=== PATIENT | male | born 1945 | race Caucasian/White ===

== ENCOUNTER 2019-04-19 14:46 | Observation (INO) | payer MEDICARE, OTHER, SELFPAY ==
[2019-04-19] VITALS (8 sets, daily range): BP systolic 139–192; BP diastolic 64–86; PULSE 61–74; RESP 14–26; TEMP 36.3–36.8; O2SAT 95–100; BMI 26.9; BMI 26.1
--- NOTE | 2019-04-19 15:08 | CT_ITS ---
STUDY: CT BRAIN WITHOUT CONTRAST REASON FOR EXAM: Male, 73 years old. Confusion. RADIATION DOSAGE (If Supplied By Facility): CTDIvol = ( 44.99 ) mGy, DLP = ( 812.98 ) mGycm TECHNIQUE: Transaxial CT imaging of the brain was performed without administration of intravenous contrast material. Individualized dose optimization techniques were used for this CT. COMPARISON: No relevant priors. FINDINGS: Normal soft tissue structures. Normal calvarium. There is mild cerebral atrophy with widening of the extra-axial spaces and ventricular dilatation. Normal white matter tracts of the cerebral hemispheres. Normal basal ganglia and thalami. Normal brainstem. Normal cerebellum. There is no intracranial hemorrhage. There are no findings of an acute ischemic infarction. Normal visualized paranasal sinuses. CT/Brain/Head without Contrast IMPRESSION: Chronic involutional changes of the brain. Electronically Signed: Ruiz Killian, at 15:57 EDT , Service support ,
--- NOTE | 2019-04-19 15:09 | EKG12_ITS ---
Test Reason : CONFUSION Blood Pressure : / mmHG Vent. Rate : 051 BPM Atrial Rate : 051 BPM P-R Int : 170 ms QRS Dur : 098 ms QT Int : 478 ms P-R-T Axes : 065 043 043 degrees QTc Int : 440 ms Sinus bradycardia Otherwise normal ECG Confirmed by PEÑA CAAL ([id number]), movie editor BRANDON NOVA ([id number]) on 04/26/2019 1:25:13 PM Referred By: Alex Callaway Confirmed By:PEÑA CAAL
--- NOTE | 2019-04-19 15:18 | ED.VISSUMM ---
- ER Visit Summary Date of Service: 04/19/19 Chief Complaint: [Confusion ] History of Present Illness: The patient is a 73 M [presents via EMS with his . Patient apparently was at [employer] and doing some tilling in a flower bed when he began feeling faint and became pale and nauseated. There was no actual syncope although states that he has had history of vasovagal syncope in the past. Patient also subsequently became quite confused and could not remember things that he should know. When EMS asked him he did not know who the president was. Patient did not recall taking their granddaughter to [facility] last night and the fact that she was in [place] today. She denies any chest pain or shortness of breath. He denies any headache or falls. He denies any weakness. He denies any paresthesias. She has not had memory issues in the past. She has history of hypertension. He has not been ill recently.] Physical Examination: [HEENT-PERRLA, EOMI. Cranial nerves II through XII grossly intact. TMs clear. Mucous membranes moist. No adenopathy. Cardiovascular-regular rate and rhythm without murmur or ectopy Lungs-clear to auscultation, chest wall stable without crepitus or subcu emphysema Abdomen-normoactive bowel sounds, soft, nontender, no rebound or rigidity, no peritoneal signs. Neuro mydj-cbulue-kufy and heel mora testing within normal limits, negative Romberg, negative pronator drift, fundi benign. NIH stroke scale was 0. Extremities-intact ?4, normal range of motion, normal pulses, atraumatic] Test Results: [CT scan of the brain without contrast obtained showed chronic involutional changes. Chest x-ray showed nothing acute. EKG showed a sinus bradycardia with a ventricular rate of 51 bpm with no acute ST segment changes. ABC with diffuse normal. Chemistries unremarkable. Troponin was less than 0.015. Alcohol was less than 3.] Emergency Department Course and Treatment: [Patient had IV line established and he was placed on a cardiac cath lab technologist.] Treatment Plan: [Admit for further work-up of confusion and amnesia.] Disposition: [Admit] Impression: [confusion/global amnesia] This note was generated with [employer] dictation software. It may contain incorrect words, spelling, and punctuation that were not noted in review of the chart prior to signing ED Disposition - Plan for ED Patient: Referrals: Venkata Dhillon [Primary Care Provider] -
--- NOTE | 2019-04-19 15:20 | RAD_ITS ---
STUDY: X-RAY CHEST REASON FOR EXAM: Male, 73 years old. Altered mental status. TECHNIQUE: Single AP portable view of the chest. COMPARISON: Comparison is made with prior study dated July 30, 2017. FINDINGS: EKG electrodes are seen. The lungs are clear and expanded. There is no demonstrated pleural abnormality. Normal size heart. Normal mediastinum and patricia. Normal visualized pulmonary arteries. There is atherosclerotic tortuosity of the aortic arch and descending thoracic aorta. Normal visualized thoracic spine. Normal visualized ribs, clavicles, and shoulders. There is no demonstrated abnormality of the visualized soft tissue structures of the upper abdomen. RAD/Chest 1 View (Portable) IMPRESSION: No acute abnormality is present. Electronically Signed: Ruiz Killian, at 15:46 EDT , Service support ,
[2019-04-19 15:34] LABS: Absolute Lymphocyte Count 1.55 X10^3/uL (0.83-4.51); Absolute Neutrophil Count 8.5 X10^3/uL (2.0-7.7); Basophil# 0.05 X10^3/uL; Basophil% 0.5 % (0-1); Eosinophils% 0.9 % (0-5); Hemoglobin 15.3 g/dL (13.0-16.5); Lymphocyte # 1.55 X10^3/ul (4.0); Lymphocyte % 14.2 % (19-41); Mean Corp Hgb Conc 34.8 g/dL (32-36); Mean Corpuscular Hgb 33.2 pg (27.0-32.0); Mean Corpuscular Volume 95.4 fL (80-94); Mean Platelet Vol. 8.9 fl (6.2-12.0); Monocyte# 0.71 X10^3/uL; Monocyte% 6.5 % (0-10); NRBC Flagged by Analyzer 0 % (0-5); Neutrophil # 8.49 X10^3/uL (2.7-7.7); Neutrophil % 77.5 % (47-70); Platelet Count 278 K/mm3 (150-450); RBC Distribution Width CV 12.5 % (11.6-14.6); Red Blood Count 4.61 M/mm3 (4.6-6.2); White Blood Count 10.9 K/mm3 (4.4-11.0)
[2019-04-19] MEDS: 0.9% Normal Saline 1,000 ML 150 ML IV (15:50)
[2019-04-19 16:03] LABS: Anion Gap 8 (5-15); BUN 21 mg/dL (7-18); Calcium,Total 9.1 mg/dL (8.5-10.1); Chloride 109 mmol/L (98-107); EST Glomerular Filtration Rate 49 mL/min (>60); Est Glom Filt Rate - Afr Amer 59 mL/min (>60); Estimated Creatinine Clearance 43.21 ml/min; Glucose 110 mg/dL (74-106); Potassium 3.9 mmol/L (3.5-5.1); Sodium Level 142 mmol/L (136-145)
[2019-04-19 16:31] LABS: Alcohol, Blood (Medical)-Serum < 3.0 mg/dL
[2019-04-19 17:02] LABS: Bacteria 0 SEEN /hpf (None Seen); Mucous, Urine 0 SEEN /hpf (<or=2+); Red Blood Cells-Urine 0 SEEN /hpf (0-5); Squamous Epithelial Cells - UA 0 SEEN /hpf (0-5); White Blood Cells 0 SEEN /hpf (0-5)
[2019-04-19 17:10] LABS: Color, Urine Yellow (Yellow); Glucose, Dipstick Normal (Normal); Ketone-Dipstick Negative (Negative); Leukocyte Esterase-Dipstick Negative /ul (Negative); Nitrite-Dipstick Negative (Negative); Occult Blood-Urine Negative /ul (Negative); Protein-Dipstick Negative (Negative); Urine Bilirubin Dipstick Negative (Negative); Urine Clarity Clear (Clear); Urine Urobilinogen Normal (Normal); Urine pH 6.5 (5.0 - 8.0)
--- NOTE | 2019-04-19 17:25 | HP.PCM_ITS ---
<Jaspal Son - Last Filed: 04/19/19 17:25> Problem List (1) Amnesia Status: Acute (2) HTN (hypertension) Status: Chronic (3) BPH (benign prostatic hyperplasia) Status: Chronic History of Present Illness Date of Admission: 04/19/19 Chief Complaint: amnesia The patient is a 73 year old M with pmhx of HTN and BPH who presents to the ER with c/o amnesia. This began suddenly this AM. He was in his usual state of health until today. He was working in a flower bed at [employer] and developed dizziness. He sat down and felt better, but remained confused. His was present and was asking him questions and he did not know the answer. This persisted all day. He currently cannot remember his medical history, or what he is done over the past 3 days including what happened today. He states he feels well, he denies headache, dizziness, lightheadedness, vision changes, hearing changes, focal deficits, numbness or tingling. He never fully lost consciousness today. He has had episodes of vasovagal syncope in the past but is never had memory issues. He has no history of dementia and no history of strokes. The patient remains ANO x2, he knows his name and where he is but is not sure what year it is and could not remember the president's name in addition to the above listed things. He denies recent illness or infection. He has no fevers or chills, no shortness of breath or cough, no nausea or vomiting or diarrhea, no urinary complaints either. [] Past Medical History Past Medical History (Chronic Problems): Chronic Problems HTN (hypertension) (Chronic) BPH (benign prostatic hyperplasia) (Chronic) Allergies cephalexin monohydrate [From Keflex] Adverse Reaction (Verified 04/19/19 14:51) Nausea Home Medications: Ambulatory Orders Medication Instructions Recorded Finasteride 5 mg PO DAILY 04/19/19 Lisinopril 5 mg PO DAILY 04/19/19 Plexus Megax 1 tab PO DAILY 04/19/19 Surgical History: no surgical history Psychiatric History: No pertinent psych hx Lives: Spouse/ Significant Other Smoking Status: Never smoker Tobacco Use: Non-smoker Alcohol: Occasional Drugs: None Review of Systems Constitutional: Denies: Chills, Fever, Weight Change HEENT: Denies: Head Aches, Sinus Congestion, Sinus Drainage Cardiovascular: Denies: Chest Pain, Palpitations Respiratory: Denies: Cough, Shortness of breath at rest, Sputum production Gastrointestinal: Denies: Abdominal Pain, Nausea, Vomiting Genitourinary: Denies: Dysuria Musculoskeletal: Denies: Joint Pain, Joint Tenderness Skin: Denies: Rash, Wounds Neurological: Reports: Confusion, - - Dizziness, confusion, loss of memory. Denies: Balance problems, Blurred vision, Double vision, Change in Speech, Slurred speech, Focal weakness, Headaches, Incoordination, Numbness, Tingling Psychiatric: Denies: Anxiety, Depression, Homicidal Ideations, Suicidal Ideations Hematologic/ Lymphatic: Denies: Easy Bruising, Easy Bleeding VTE Information - Inpt Only VTE Present on Admission: No VTE Mechan Device Prophylaxis: None VTE Pharm Prophylaxis ordered?: Yes Patient Problems: Active and Suspected Problems Amnesia (Acute) - Physical Exam General: Alert, Oriented x3, Cooperative HEENT: Atraumatic, PERRLA, EOMI, Normocephalic Neck: Supple, No JVD, Negative Carotid Bruits Lungs: Clear to auscultation, Normal air movement Cardiovascular: Regular rate, No murmurs Abdomen: Bowel Sounds Present, Soft, Non Tender Extremities: No edema, Capillary Refill Less than 3 Seconds Skin: No rashes, No breakdown, - - mild tenting Musculoskeletal: No Tenderness to Palpation of Joints or Extremities Neurological: Cranial nerves II-XII grossly intact Psych/Mental Status: Normal Affect, Appropriate, Alert and oriented to time, place, person, mood and affect Vital Signs Temp Pulse Resp BP Pulse Ox 97.4 F L 71 23 H 165/86 H 97 04/19/19 14:47 04/19/19 17:00 04/19/19 17:00 04/19/19 17:00 04/19/19 17:00 Oxygen Delivery Method Room Air Weight: 182 lb 12.211 oz Body Mass Index (BMI) 26.9 Laboratory Tests Past 24 Hrs 04/19/19 04/19/19 04/19/19 15:20 15:20 15:20 WBC 10.9 RBC 4.61 Hgb 15.3 Hct 44.0 MCV 95.4 H MCH 33.2 H MCHC 34.8 RDW Std Deviation 44.0 H RDW Coeff of Conrad 12.5 Plt Count 278 MPV 8.9 Immature Gran % (Auto) 0.400 Neut % (Auto) 77.5 H Lymph % (Auto) 14.2 L [place] % (Auto) 6.5 Eos % (Auto) 0.9 Baso % (Auto) 0.5 Absolute Neuts (auto) 8.5 H Absolute Lymphs (auto) 1.55 Nucleated RBC % 0 Sodium 142 Potassium 3.9 Chloride 109 H Carbon Dioxide 25.0 Anion Gap 8 BUN 21 H Creatinine 1.50 H Estim Creat Clear Calc 43.21 Est GFR (MDRD) Af Amer 59 L Est GFR (MDRD) Non-Af 49 L BUN/Creatinine Ratio 14.0 Glucose 110 H Calcium 9.1 Troponin I < 0.015 Urine Color Urine Clarity Urine pH Ur Specific [place] Urine Protein Urine Glucose (UA) Urine Ketones Urine Occult Blood Urine Nitrite Urine Bilirubin Urine Urobilinogen Ur Leukocyte Esterase Urine RBC Urine WBC Ur Squamous Epith Cells Urine Bacteria Urine Mucus Ethyl Alcohol < 3.0 04/19/19 16:45 WBC RBC Hgb Hct MCV MCH MCHC RDW Std Deviation RDW Coeff of Conrad Plt Count MPV Immature Gran % (Auto) Neut % (Auto) Lymph % (Auto) [place] % (Auto) Eos % (Auto) Baso % (Auto) Absolute Neuts (auto) Absolute Lymphs (auto) Nucleated RBC % Sodium Potassium Chloride Carbon Dioxide Anion Gap BUN Creatinine Estim Creat Clear Calc Est GFR (MDRD) Af Amer Est GFR (MDRD) Non-Af BUN/Creatinine Ratio Glucose Calcium Troponin I Urine Color Pending Urine Clarity Pending Urine pH Pending Ur Specific [place] Pending Urine Protein Pending Urine Glucose (UA) Pending Urine Ketones Pending Urine Occult Blood Pending Urine Nitrite Pending Urine Bilirubin Pending Urine Urobilinogen Pending Ur Leukocyte Esterase Pending Urine RBC Pending Urine WBC Pending Ur Squamous Epith Cells Pending Urine Bacteria Pending Urine Mucus Pending Ethyl Alcohol Assessment/Plan All Active Problems Amnesia (Acute) 1. Transient amnesia / near syncope - patient cannot remember what happened today, is A/Ox2, and cannot remember the events of the last several days. He has no hx of memory issues or stroke. He may be somewhat dehydrated and may have had a near syncopal episode. - He has a hx of vasovagal syncope and his BUN/Cr are somewhat elevated, but they have been in the past. -Continue IV fluids. Check UA. MRI brain in the AM. -CT brain negative, trop neg, CXR normal, EtOH neg, no fever or leukocytosis. -Check orthos. Maintain on tele, and consider echo. 2. HTN - hold rubin with suspected dehydration. prn hydralazine 3. BPH - proscar DVT ppx: heparin This patient was seen by Jaspal Son PA-C under the supervision of Doctor Nilton. <Alex Callaway - Last Filed: 04/19/19 19:30> History of Present Illness Seen and examined The patient is a 73 year old M with no prior history of neurological disease including TIA/stroke, seizure disorder chronic headache came to ER with altered mental status mainly amnesia. As per the patient's and son, he was found confused, forgetfulness, not able to recall her register today. He also found dizzy today. Patient denies fever, URI, burning micturition/dysuria or localized symptoms pertaining to infection. As per the , this is new for him. [] Past Medical History Allergies cephalexin monohydrate [From Keflex] Adverse Reaction (Verified 04/19/19 14:51) Nausea - Physical Exam General: Cooperative, Confused, Disoriented, - - Patient not able to answer president, disoriented to time. HEENT: Atraumatic, PERRLA, EOMI, Normocephalic Oral: Dry Mucosa Neck: Supple, No JVD, Negative Carotid Bruits Lungs: Clear to auscultation, Normal air movement, No rhonchi, No wheeze, No rales Cardiovascular: Regular rate, Regular Rhythm, Normal S1, Normal S2, No murmurs Abdomen: Bowel Sounds Present Extremities: No edema, Capillary Refill Less than 3 Seconds Skin: No rashes, No breakdown, - Musculoskeletal: No Tenderness to Palpation of Joints or Extremities, Arthritic Changes Neurological: Cranial nerves II-XII grossly intact, Deep Tendon Reflexes 2+/4 and Symmetrical, Neuro grossly intact Vital Signs Temp Pulse Resp BP Pulse Ox 97.8 F 69 16 181/79 H 95 04/19/19 18:17 04/19/19 18:17 04/19/19 18:17 04/19/19 18:17 04/19/19 18:17 Oxygen Delivery Method Room Air Weight: 176 lb 12.972 oz Body Mass Index (BMI) 26.1 Intake and Output for Last 24 Hours 04/17/19 04/18/19 04/19/19 23:59 23:59 23:59 Intake Total 392.5 / 392.5 Balance 392.5 / 392.5 Laboratory Tests Past 24 Hrs 04/19/19 04/19/19 04/19/19 15:20 15:20 15:20 WBC 10.9 RBC 4.61 Hgb 15.3 Hct 44.0 MCV 95.4 H MCH 33.2 H MCHC 34.8 RDW Std Deviation 44.0 H RDW Coeff of Conrad 12.5 Plt Count 278 MPV 8.9 Immature Gran % (Auto) 0.400 Neut % (Auto) 77.5 H Lymph % (Auto) 14.2 L [place] % (Auto) 6.5 Eos % (Auto) 0.9 Baso % (Auto) 0.5 Absolute Neuts (auto) 8.5 H Absolute Lymphs (auto) 1.55 Nucleated RBC % 0 Sodium 142 Potassium 3.9 Chloride 109 H Carbon Dioxide 25.0 Anion Gap 8 BUN 21 H Creatinine 1.50 H Estim Creat Clear Calc 43.21 Est GFR (MDRD) Af Amer 59 L Est GFR (MDRD) Non-Af 49 L BUN/Creatinine Ratio 14.0 Glucose 110 H Calcium 9.1 Troponin I < 0.015 Urine Color Urine Clarity Urine pH Ur Specific [place] Urine Protein Urine Glucose (UA) Urine Ketones Urine Occult Blood Urine Nitrite Urine Bilirubin Urine Urobilinogen Ur Leukocyte Esterase Urine RBC Urine WBC Ur Squamous Epith Cells Urine Bacteria Urine Mucus Ethyl Alcohol < 3.0 04/19/19 16:45 WBC RBC Hgb Hct MCV MCH MCHC RDW Std Deviation RDW Coeff of Conrad Plt Count MPV Immature Gran % (Auto) Neut % (Auto) Lymph % (Auto) [place] % (Auto) Eos % (Auto) Baso % (Auto) Absolute Neuts (auto) Absolute Lymphs (auto) Nucleated RBC % Sodium Potassium Chloride Carbon Dioxide Anion Gap BUN Creatinine Estim Creat Clear Calc Est GFR (MDRD) Af Amer Est GFR (MDRD) Non-Af BUN/Creatinine Ratio Glucose Calcium Troponin I Urine Color Yellow Urine Clarity Clear Urine pH 6.5 Ur Specific [place] 1.010 Urine Protein Negative Urine Glucose (UA) Normal Urine Ketones Negative Urine Occult Blood Negative Urine Nitrite Negative Urine Bilirubin Negative Urine Urobilinogen Normal Ur Leukocyte Esterase Negative Urine RBC 0 SEEN Urine WBC 0 SEEN Ur Squamous Epith Cells 0 SEEN Urine Bacteria 0 SEEN Urine Mucus 0 SEEN Ethyl Alcohol Assessment/Plan This patient was seen in conjunction with Jaspal AYALA. I have independently interviewed and examined the patient and reviewed pertinent history, examination findings, laboratory and plan of management. I have reviewed the note and ag ree with the documented findings with the few additional points. In brief, patient is admitted for confusion, amnesia and dizziness suggestive of transient amnesia with near syncope: Patient does not remember having history of stroke/TIA or carotid stenosis. It seems patient may have metabolic encephalopathy. CT brain does not show acute change. Chest x-ray no acute abnormality. UA is negative. Mild increase in BUN/creatinine from his baseline. Currently BUN/creatinine is 21/1.5. Baseline about 1.3 as per July 2017. IV fluid normal saline. Orthostatic blood pressure. MRI brain o rdered. If found any acute finding in the MRI will need neuro consult. I have discussed my assessment with Jaspal AYALA and orders have been reviewed. Clinical Impression(s) from Imaging Studies Brain CT 04/19/19 15:08 IMPRESSION: Chronic involutional changes of the brain. Chest X-Ray 04/19/19 15:20 IMPRESSION: No acute abnormality is present. Code Visit OBSV E&M: 97469 Initial observation care L3
--- NOTE | 2019-04-19 17:41 | MRI_ITS ---
STUDY: MRI BRAIN WITHOUT CONTRAST REASON FOR EXAM: Male, 73 years old. Confusion. Near syncope. TECHNIQUE: Standardized multiplanar fat and water weighted pulse sequences were obtained. COMPARISON: CT brain without contrast earlier same date. FINDINGS: Normal size of the ventricles and extra-axial spaces for the patient's age. Normal white matter tracts of the supratentorial brain. Normal bilateral basal ganglia. Normal thalami. There is no extra-axial fluid accumulation. Normal flow voids within the major intracranial circulation suggesting patency by spin echo criteria. Normal sella turcica, pituitary gland, infundibular stalk, optic chiasm and hypothalamus. Normal tectal plate and pineal gland. Normal midbrain, julio césar and medulla. Normal cerebellum. Normal basal cisterns. Normal bilateral temporal bones. Normal bilateral internal auditory canals. No demonstrated orbital abnormality, within the constraints of a routine brain study. Normal visualized paranasal sinuses. Normal calvarium and skull base. 1.1 cm diameter simple appearing cystic structure along the anterior aspect of the right mastoid tip, no adjacent inflammatory changes. Small amount of fluid in the right mastoid air cells. MRI/Brain without Contrast IMPRESSION: Normal unenhanced MRI of the brain. 1.1 cm diameter simple appearing cystic structure along the anterior aspect of the right mastoid tip, of uncertain clinical significance but likely incidental given the simple benign appearance. Please correlate with physical examination for tenderness etc. Electronically Signed: Bobo Joel, at 21:47 EDT Tel , Service support ,
[2019-04-19] MEDS: hydrALAZINE 20 MG/ML Vial 5 MG IV (20:40)
[2019-04-19] MEDS: 0.9% Normal Saline 1,000 ML 125 ML IV (20:40)
[2019-04-20] VITALS (9 sets, daily range): BP systolic 142–177; BP diastolic 62–81; PULSE 40–80; RESP 14–18; TEMP 36.6–36.8; O2SAT 95–98; BMI 26.1
[2019-04-20] MEDS: 0.9% Normal Saline 1,000 ML 125 ML IV (04:42)
[2019-04-20 05:56] LABS: Anion Gap 8 (5-15); BUN 17 mg/dL (7-18); BUN/Creat Ratio 14.2 RATIO (10-20); Calcium,Total 8.4 mg/dL (8.5-10.1); Chloride 111 mmol/L (98-107); EST Glomerular Filtration Rate 63 mL/min (>60); Est Glom Filt Rate - Afr Amer 76 mL/min (>60); Estimated Creatinine Clearance 54.01 ml/min; Glucose 89 mg/dL (74-106); Potassium 3.6 mmol/L (3.5-5.1); Sodium Level 144 mmol/L (136-145)
--- NOTE | 2019-04-20 07:19 | MRI_ITS ---
STUDY: MRA NECK WITH AND WITHOUT CONTRAST REASON FOR EXAM: Male, 73 years old. Confusion. Near syncopal episode yesterday. Amnesia. No symptoms today. TECHNIQUE: 3-D wzbh-tk-gedzgz (TOF) imaging was performed in an 1.5 T MRI scanner. IV Dotarem 15 was administered for the contrast enhanced images. COMPARISON: None. FINDINGS: RIGHT CAROTID ARTERIES: Normal right common carotid artery (CCA). Normal right internal carotid bulb. Normal origin of the right internal carotid (ICA) artery without a hemodynamically significant stenosis. Normal visualized cervical portion of the right internal carotid artery. Normal origin of the right external carotid artery (ECA). LEFT CAROTID ARTERIES: Normal left common carotid artery (CCA). Normal left internal carotid bulb. Normal origin of the left internal carotid (ICA) artery without a hemodynamically significant stenosis. Normal visualized cervical portion of the left internal carotid artery. Normal origin of the left external carotid artery (ECA). VERTEBRAL ARTERIES: Normal antegrade flow within the bilateral vertebral artery without a hemodynamically significant stenosis. The left vertebral artery slightly dominant. AORTIC ARCH: Widely patent aortic arch and origins of the great vessels. Widely patent subclavian origins of both vertebral arteries. MRI/MRA Neck WITH and W/O Contrast IMPRESSION: 1. Normal MRA of both common carotid arteries, both common carotid bifurcations, both internal and external carotid arteries and both vertebral arteries. 2. Normal aortic arch and origins of the great vessels. Electronically Signed: Bob Will MD at 14:20 EDT , Service support ,
--- NOTE | 2019-04-20 07:19 | MRI_ITS ---
STUDY: MRA OF THE HEAD WITHOUT CONTRAST REASON FOR EXAM: Male, 73 years old. Confusion. Near syncopal episode yesterday. Amnesia. No symptoms today. TECHNIQUE: 3-D pqld-hg-lxlifw (TOF) imaging was performed with MIPs. The study was performed unenhanced. COMPARISON: None. FINDINGS: Normal bilateral petrous carotid arteries. Normal right cavernous carotid artery with a normal supraclinoid bifurcation. Normal left cavernous carotid artery with a normal supraclinoid bifurcation. Normal right A1 segment of the anterior cerebral artery. Normal left A1 segment of the anterior cerebral artery. Normal intact anterior communicating artery (ACOM). Normal bilateral A2 segments of the anterior cerebral arteries. Normal right M1 and M2 segments of the middle cerebral arteries, with a normal M1 bifurcation. Normal left M1 and M2 segments of the middle cerebral arteries, with a normal M1 bifurcation. No visible right posterior communicating artery (PCOM). No visible left posterior communicating artery (PCOM). Normal bilateral vertebral arteries. Normal basilar artery with a normal basilar bifurcation. The visualized bilateral superior cerebellar (SCA) arteries are normal. Normal bilateral P1, P2 and visualized P3 segments of the posterior cerebral arteries. There is no demonstrated aneurysm of the [place] of [place]. There is no major vessel occlusion or hemodynamically significant stenosis. There is no demonstrated abnormality of the visualized brain. MRI/MRA Head ONLY without Contrast IMPRESSION: Normal MRA of the head Electronically Signed: Bob Will MD at 14:15 EDT , Service support ,
[2019-04-20] MEDS: Finasteride 5 MG Tablet PO (09:16)
--- NOTE | 2019-04-20 12:02 | CASEMGMT ---
RN CM Assessment Introduced role of RN CM to patient Tamara Maldonado at bedside, patient currently not at bedside-in procedure. This same travel writer attempted to speak with patient, Erica and son Scottie at bedside last night in ER however provider entered room and this travel writer was unable to complete assessment. Care providers, pharmacy, and demographics verified with rio Maldonado. Presentation: Presented via EMS d/t was at [employer] and did some tilling in a flower bed when he began feeling faint and became pale and nauseated. Subsequently became confused and couldn't remember things he should know. Admit Dx: Amnesia, near syncope Re-Admit: No Barriers/Issues: None. Patient recently retired this past June 2018 and remains very active. PCP: Venkata Dhillon Specialists: Uro- Used to see Dr Castaneda, states cannot recall name of the lady that that patient sees there now. Per google search Possible Rona Dickens, [facility]?? ENT- Dr Talbot [facility] A[facility]B, [place] SR SUPP Rx Benefit:?Yes ?LNOK: Tamara Rust LW/HPOA: States has both and aware not on file, meant to bring in but forgot. HPOA- [place] Rust Living Arrangements:? Lives with in a SS home, 2 steps to enter ADL?s: Independent with ambulation and ADLs Transportation: Both patient and drive DME: None HHC: None SNF: None Goal: Home and does not think will have ay needs. Denies any questions, concerns or issues with DC planning at this time. Aware CM remains available for any emerging needs. DC PLAN: Home with no anticipated needs identified at this time. RAI He
--- NOTE | 2019-04-20 13:53 | DS.PCM_ITS ---
<Jaspal Son - Last Filed: 04/20/19 14:29> Discharge Date and Diagnosis - Problem List Patient Problems: Active and Suspected Problems Amnesia (Acute) Date of Admission: 04/19/19 Date of Discharge: 04/20/19 - Primary Discharge Diagnosis Active and Suspected Problems Amnesia (Acute) 2/2 dehydration Near syncope 2/2 above Hx vasovagal syncope HTN BPH Hx Warthin's tumors - Secondary Discharge Diagnosis Chronic Problems HTN (hypertension) (Chronic) BPH (benign prostatic hyperplasia) (Chronic) Hospital Course and Treatment Imaging Results: IMAGING: CT/Brain/Head without Contrast IMPRESSION: Chronic involutional changes of the brain. RAD/Chest 1 View (Portable) IMPRESSION: No acute abnormality is present. MRI/Brain without Contrast IMPRESSION: Normal unenhanced MRI of the brain. 1.1 cm diameter simple appearing cystic structure along the anterior aspect of the right mastoid tip, of uncertain clinical significance but likely incidental given the simple benign appearance. Please correlate with physical examination for tenderness etc. Operations: None Procedures: None Summary of Care Provided: Hospital Course: The patient is a 73 year old M with pmhx of vasovagal syncope, HTN, BPH, who presented to the ER with memory loss. He had been working on a flower bed in the morning and had not been drinking water. He suddenly felt LH and sat back in the dirt. His thought he was going to pass out however he stayed conscious. He however was confused, and could not appropriately answer questions. He also could not remember what happened that day or the days prior. He had a CT of the brain which was negative. EKG was negative. Labs were suggestive of dehydration. He was A/Ox2, could not remember the year, the president, his medical hx, or the events of the past days. He was admitted to the PCU and given IV fluids. He had no events on tele. He was taken for an MRI of the brain which was negative, although it did have an incidental finding of a 1.1 cm cyst on the right mastoid tip. He underwent an MRA of the head and Neck. His memory had returned the following morning. He was able to recall the events of the past days to me and what happened yesterday, his medical hx, and answer all A/O questions. He was felt to likely have had a near syncopal episode 2/2 dehydration. He was discharged home in stable condition and will need to follow up with his PCP in 1-2 weeks. As per his incidental cyst he has been seen in the past by ENT Dr. Khan for warthin's tumors , he should follow up in 2 weeks. This patient was seen by Jaspal Son PA-C under the supervision of Doctor Jorge. [] Patient Problems: Active and Suspected Problems Amnesia (Acute) - Physical Exam General: Alert, Oriented x3, Cooperative HEENT: Atraumatic, PERRLA, EOMI, Normocephalic Neck: Supple, No JVD, Negative Carotid Bruits Lungs: Clear to auscultation, Normal air movement Cardiovascular: Regular rate, No murmurs Abdomen: Bowel Sounds Present, Soft, Non Tender Extremities: No edema, Capillary Refill Less than 3 Seconds Skin: No rashes, No breakdown Musculoskeletal: No Tenderness to Palpation of Joints or Extremities Neurological: Cranial nerves II-XII grossly intact Psych/Mental Status: Normal Affect, Appropriate, Alert and oriented to time, place, person, mood and affect Vital Signs Temp Pulse Resp BP Pulse Ox 98.3 F 69 14 150/62 H 95 04/20/19 09:12 04/20/19 09:12 04/20/19 09:12 04/20/19 09:12 04/20/19 09:12 Oxygen Delivery Method Room Air Weight: 176 lb 12.972 oz Body Mass Index (BMI) 26.1 Orthostatic Vital Signs Start: 04/19/19 20:04 Freq: q24h Status: Active Protocol: Activity Type Activity Date Activity User E-Sign Co-Sign Detail Recorded Client Recorded Date Recorded By Document 04/20/19 06:39 KK [id number] 04/20/19 06:46 KK 04/20/19 06:39 Orthostatic Vitals Standing -Blood Pressure (90/60-120/80) 161/73 H -Extremity Use Left Arm -Pulse Rate (60-100) 58 L Sitting -Blood Pressure (90/60-120/80) 153/80 H -Extremity Use Left Arm -Pulse Rate (60-100) 55 L Lying -Blood Pressure (90/60-120/80) 142/81 H -Extremity Use Left Arm -Pulse Rate (60-100) 52 L Intake and Output for Last 24 Hours 04/18/19 04/19/19 04/20/19 23:59 23:59 23:59 Intake Total 1154.58 / 1154.58 2352.92 / 2352.92 Balance 1154.58 / 1154.58 2352.92 / 2352.92 Laboratory Tests Past 24 Hrs 04/19/19 04/19/19 04/19/19 15:20 15:20 15:20 WBC 10.9 RBC 4.61 Hgb 15.3 Hct 44.0 MCV 95.4 H MCH 33.2 H MCHC 34.8 RDW Std Deviation 44.0 H RDW Coeff of Conrad 12.5 Plt Count 278 MPV 8.9 Immature Gran % (Auto) 0.400 Neut % (Auto) 77.5 H Lymph % (Auto) 14.2 L [place] % (Auto) 6.5 Eos % (Auto) 0.9 Baso % (Auto) 0.5 Absolute Neuts (auto) 8.5 H Absolute Lymphs (auto) 1.55 Nucleated RBC % 0 Sodium 142 Potassium 3.9 Chloride 109 H Carbon Dioxide 25.0 Anion Gap 8 BUN 21 H Creatinine 1.50 H Estim Creat Clear Calc 43.21 Est GFR (MDRD) Af Amer 59 L Est GFR (MDRD) Non-Af 49 L BUN/Creatinine Ratio 14.0 Glucose 110 H Calcium 9.1 Troponin I < 0.015 Urine Color Urine Clarity Urine pH Ur Specific [place] Urine Protein Urine Glucose (UA) Urine Ketones Urine Occult Blood Urine Nitrite Urine Bilirubin Urine Urobilinogen Ur Leukocyte Esterase Urine RBC Urine WBC Ur Squamous Epith Cells Urine Bacteria Urine Mucus Ethyl Alcohol < 3.0 04/19/19 04/20/19 16:45 04:58 WBC RBC Hgb Hct MCV MCH MCHC RDW Std Deviation RDW Coeff of Conrad Plt Count MPV Immature Gran % (Auto) Neut % (Auto) Lymph % (Auto) [place] % (Auto) Eos % (Auto) Baso % (Auto) Absolute Neuts (auto) Absolute Lymphs (auto) Nucleated RBC % Sodium 144 Potassium 3.6 Chloride 111 H Carbon Dioxide 25.0 Anion Gap 8 BUN 17 Creatinine 1.20 Estim Creat Clear Calc 54.01 Est GFR (MDRD) Af Amer 76 Est GFR (MDRD) Non-Af 63 BUN/Creatinine Ratio 14.2 Glucose 89 Calcium 8.4 L Troponin I Urine Color Yellow Urine Clarity Clear Urine pH 6.5 Ur Specific [place] 1.010 Urine Protein Negative Urine Glucose (UA) Normal Urine Ketones Negative Urine Occult Blood Negative Urine Nitrite Negative Urine Bilirubin Negative Urine Urobilinogen Normal Ur Leukocyte Esterase Negative Urine RBC 0 SEEN Urine WBC 0 SEEN Ur Squamous Epith Cells 0 SEEN Urine Bacteria 0 SEEN Urine Mucus 0 SEEN Ethyl Alcohol Discharge Diet: Low fat/ Low Cholesterol, 2000 mg Sodium Diet Discharge Activity: Return to Normal Activity Home Medications: Medications to take at Discharge Finasteride 5 mg PO DAILY 04/19/19 Lisinopril 5 mg PO DAILY 04/19/19 Plexus Megax 1 tab PO DAILY 04/19/19 Primary Care Physician: Venkata Dhillon [Primary Care Provider] - Please follow up with your Primary Care Physician in: 1-2 weeks Disposition: Home Minutes spent on discharge:: 35 Patient Condition:: Stable Medical Necessity - Tobacco Use Smoking Status: Never smoker Tobacco Use: Non-smoker Meaningful Use Info Meaningful Use Diagnoses (Choose all that apply): None applicable <JorgeNgakay Caceres - Last Filed: 04/20/19 15:08> Discharge Date and Diagnosis - Primary Discharge Diagnosis Active and Suspected Problems Amnesia (Acute) - Secondary Discharge Diagnosis Chronic Problems HTN (hypertension) (Chronic) BPH (benign prostatic hyperplasia) (Chronic) Hospital Course and Treatment Imaging Results: 04/20/19 07:19 MRA Head ONLY without Contrast [MRI] Urgent MRA Neck WITH and W/O Contrast [MRI] Urgent Summary of Care Provided: Patient seen by Jaspal Son PA-C under my supervision The patient is a 73 year old M with a PMH as listed who was admitted via the ED on 04/20/19 with a complaint of transient memory loss. Been working outside and not drinking much water and suddenly felt lightheaded and sat back. He became confused though he did not lose any consciousness. Was therefore brought to the ED. He had a CT of the brain which was negative and EKG showed no acute ST changes. Labs are essentially unremarkable apart from creatinine of 1.5. He was admitted and hydrated with IV fluids. MRI of the brain was negative for any evidence of stroke and only showed an incidental finding of a 1.1 cm cyst in the right mastoid tip. MRA of the head and neck was also normal. Creatinine trended out 1.2 and patient regained his memory. It was felt that his symptoms were likely due to his syncopal event with dehydration. He was evaluated by physical therapy and deemed fit to go home on 04/20/2019. He is follow-up with his primary care doctor and also to follow-up with ENT to the incidental cyst that was diagnosed by MRI. He seen and examined prior to discharge. He had no complaints. Review of systems otherwise. Labs and vitals reviewed. Home medication reviewed and reconciled. o/e: ] Vital Signs Height 5 ft 9 in Weight: 176 lb 12.972 oz Weight in Pounds 176.8 lbs Pulse Ox 95 Temperature 98.3 F Pulse Rate [Standing] 58 Pulse Rate [Sitting] 55 Pulse Rate [Lying] 52 Pulse Rate 69 Respiratory Rate 14 Blood Pressure [Standing] 161/73 Blood Pressure [Sitting] 153/80 Blood Pressure [Lying] 142/81 Blood Pressure 150/62 Blood Pressure Position Semi-Fowlers General: Alert, Oriented x3, Cooperative HEENT: Atraumatic, PERRLA, EOMI, Normocephalic Neck: Supple, No JVD, Negative Carotid Bruits Lungs: Clear to auscultation, Normal air movement Cardiovascular: Regular rate, No murmurs Abdomen: Bowel Sounds Present, Soft, Non Tender Extremities: No edema, Capillary Refill Less than 3 Seconds Skin: No rashes, No breakdown, - - mild tenting Musculoskeletal: No Tenderness to Palpation of Joints or Extremities Neurological: Cranial nerves II-XII grossly intact Psych/Mental Status: Normal Affect, Appropriate, Alert and oriented to time, place, person, mood and affect Patient counselled to stay hydrated when working outside. Rest of plan as above. - Physical Exam Vital Signs Temp Pulse Resp BP Pulse Ox 98.3 F 69 14 150/62 H 95 04/20/19 09:12 04/20/19 09:12 04/20/19 09:12 04/20/19 09:12 04/20/19 09:12 Oxygen Delivery Method Room Air Weight: 176 lb 12.972 oz Body Mass Index (BMI) 26.1 Orthostatic Vital Signs Start: 04/19/19 20:04 Freq: q24h Status: Active Protocol: Activity Type Activity Date Activity User E-Sign Co-Sign Detail Recorded Client Recorded Date Recorded By Document 04/20/19 06:39 DEANNA [id number] 04/20/19 06:46 04/20/19 06:39 Orthostatic Vitals Standing -Blood Pressure (90/60-120/80) 161/73 H -Extremity Use Left Arm -Pulse Rate (60-100) 58 L Sitting -Blood Pressure (90/60-120/80) 153/80 H -Extremity Use Left Arm -Pulse Rate (60-100) 55 L Lying -Blood Pressure (90/60-120/80) 142/81 H -Extremity Use Left Arm -Pulse Rate (60-100) 52 L Intake and Output for Last 24 Hours 04/18/19 04/19/19 04/20/19 23:59 23:59 23:59 Intake Total 1154.58 / 1154.58 2352.92 / 2352.92 Balance 1154.58 / 1154.58 2352.92 / 2352.92 Laboratory Tests Past 24 Hrs 04/19/19 04/19/19 04/19/19 15:20 15:20 15:20 WBC 10.9 RBC 4.61 Hgb 15.3 Hct 44.0 MCV 95.4 H MCH 33.2 H MCHC 34.8 RDW Std Deviation 44.0 H RDW Coeff of Conrad 12.5 Plt Count 278 MPV 8.9 Immature Gran % (Auto) 0.400 Neut % (Auto) 77.5 H Lymph % (Auto) 14.2 L [place] % (Auto) 6.5 Eos % (Auto) 0.9 Baso % (Auto) 0.5 Absolute Neuts (auto) 8.5 H Absolute Lymphs (auto) 1.55 Nucleated RBC % 0 Sodium 142 Potassium 3.9 Chloride 109 H Carbon Dioxide 25.0 Anion Gap 8 BUN 21 H Creatinine 1.50 H Estim Creat Clear Calc 43.21 Est GFR (MDRD) Af Amer 59 L Est GFR (MDRD) Non-Af 49 L BUN/Creatinine Ratio 14.0 Glucose 110 H Calcium 9.1 Troponin I < 0.015 Urine Color Urine Clarity Urine pH Ur Specific [place] Urine Protein Urine Glucose (UA) Urine Ketones Urine Occult Blood Urine Nitrite Urine Bilirubin Urine Urobilinogen Ur Leukocyte Esterase Urine RBC Urine WBC Ur Squamous Epith Cells Urine Bacteria Urine Mucus Ethyl Alcohol < 3.0 04/19/19 04/20/19 16:45 04:58 WBC RBC Hgb Hct MCV MCH MCHC RDW Std Deviation RDW Coeff of Conrad Plt Count MPV Immature Gran % (Auto) Neut % (Auto) Lymph % (Auto) [place] % (Auto) Eos % (Auto) Baso % (Auto) Absolute Neuts (auto) Absolute Lymphs (auto) Nucleated RBC % Sodium 144 Potassium 3.6 Chloride 111 H Carbon Dioxide 25.0 Anion Gap 8 BUN 17 Creatinine 1.20 Estim Creat Clear Calc 54.01 Est GFR (MDRD) Af Amer 76 Est GFR (MDRD) Non-Af 63 BUN/Creatinine Ratio 14.2 Glucose 89 Calcium 8.4 L Troponin I Urine Color Yellow Urine Clarity Clear Urine pH 6.5 Ur Specific [place] 1.010 Urine Protein Negative Urine Glucose (UA) Normal Urine Ketones Negative Urine Occult Blood Negative Urine Nitrite Negative Urine Bilirubin Negative Urine Urobilinogen Normal Ur Leukocyte Esterase Negative Urine RBC 0 SEEN Urine WBC 0 SEEN Ur Squamous Epith Cells 0 SEEN Urine Bacteria 0 SEEN Urine Mucus 0 SEEN Ethyl Alcohol Code Visit OBSV E&M: [id number] Observation care discharge
--- NOTE | 2019-04-20 14:44 | DCINST_ITS ---
- Discharge Diagnoses Current Active Problems: Current Active and Chronic Problems Amnesia (Acute) HTN (hypertension) (Chronic) BPH (benign prostatic hyperplasia) (Chronic) You will use the following diet at home:: Cardiac Your food should be the consistency of: Regular Your liquids should be the consistency of: Regular/Thin Discharge Activity: Return to Normal Activity Allergies/Adverse Reactions: Allergies cephalexin monohydrate [From [employer]] Adverse Reaction (Verified 04/19/19 14:51) Nausea Medications to take at Discharge Finasteride 5 mg PO DAILY 04/19/19 Lisinopril 5 mg PO DAILY 04/19/19 Plexus Megax 1 tab PO DAILY 04/19/19 Primary Care Physician: Venkata Dhillon [Primary Care Provider] - Please follow up with your Primary Care Physician in: 1-2 weeks Test Results: Test results from this visit will be discussed in further detail at your follow- up appointment, if applicable. Proposed Discharge Date: 04/20/19
[2019-04-20] MEDS: hydrALAZINE 20 MG/ML Vial 5 MG IV (14:55)
--- NOTE | 2019-04-20 15:35 | PHA.DC.MR ---
Pharmacy Service has performed discharge medication reconciliation for this patient. Home Medications Finasteride 5 mg PO DAILY 04/19/19 Lisinopril 5 mg PO DAILY 04/19/19 Plexus Megax 1 tab PO DAILY 04/19/19 The patient's discharge medication list was reviewed for discrepancies and discrepancies were resolved.
== END 2019-04-20 14:44 | disposition home or self-care (01) ==
LOC: ED 15:17 → PCU 18:12
PROVIDERS: Physician Assistant; Admitting Provider Internal Medicine; Emergency Provider Emergency Medicine; Family Provider Family Medicine; PCP Family Medicine; Referring Provider Internal Medicine; Visit Provider Student in an Organized Health Care Education/Training Program
DX: E86.0 Dehydration (principal); R41.3 Other amnesia; N40.0 Benign prostatic hyperplasia without lower urinary tract symptoms; I10 Essential (primary) hypertension; R55 Syncope and collapse; Z79.899 Other long term (current) drug therapy; R29.700 NIHSS score 0
CPT/HCPCS: 36415; 70450; 70544; 70549; 70551; 71045; 80048; 80320; 81001; 84484; 85025; 93005; 96361; 96374; 96376; 99218; 99285; A9575; J7030; A4216; G0378; G0480

== ENCOUNTER → 2019-06-16 09:58 | Outpatient (CLI) | payer MEDICARE, OTHER, SELFPAY ==
[2019-04-20 15:00] VITALS: BMI 26.1
== END ==
PROVIDERS: Family Provider Family Medicine; PCP Family Medicine; Referring Provider Nurse Practitioner Adult Health; Visit Provider Nurse Practitioner Adult Health
DX: Z12.5 Encounter for screening for malignant neoplasm of prostate (principal)
CPT/HCPCS: 36415; 84153; G0103

== ENCOUNTER → 2020-06-27 09:46 | Outpatient (CLI) | payer MEDICARE, OTHER, SELFPAY ==
[2019-04-20 15:00] VITALS: BMI 26.1
== END ==
LOC: LAB.FUTURE 09:49 → LAB 09:51
PROVIDERS: PCP Family Medicine; Referring Provider Nurse Practitioner Adult Health; Visit Provider Nurse Practitioner Adult Health
DX: R97.20 Elevated prostate specific antigen [PSA] (principal)
CPT/HCPCS: 36415; 84153

== ENCOUNTER → 2022-09-19 | Outpatient (CLI) | payer MEDICARE, OTHER, SELFPAY ==
--- NOTE | 2022-09-19 10:00 | ASPOS_PTH ---
PATIENT: DONALD MEJIA LOC: [facility] U#:[id number] AGE/SX: 76/M ROOM: RE09/19/[address]: Dr. Gerson Khan MD : 1945 BED: DIS: 09/19/2022 SPEC #: [id number] RECD: 09/19/22 10:30 STATUS: ZAKIA HERRERA #: [id number] MAYA: 09/19/22 10:[address]: Gerson Khan DEPT: CYTOLOGY RECD BY: Sumi Elizondo ENTERED: 09/19/22 10:30 SP TYPE: ASP HERE OTHR DR: Dr. 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 See comment. AM:latosha 09/22/2022 COMMENT The specimen is evaluated at the time of FNA by Dr. Valencia. 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 The patient?s history of Warthin tumor in the same site approximately 10-12 years ago is noted. Clinical correlation is suggested. Case has been reviewed in consultation with Dr. Barrios who concurs with the above diagnosis. IDC:SJ CYTOLOGY STUDY Slides are reviewed. CYTOLOGY GROSS Received is 0.2 ml of reddish fluid labeled with the patient's name, and designated Right parotid mass. Six imprints and three paps are made from the submitted fluid and the rest is added to CytoLyt for cell block preparation. Submitted for cytology study. / AM:latosha 09/19/2022 TC:5 CPT: 60278, 12054, 96844, 26755
== END | disposition home or self-care (01) ==
LOC: LAB 09:06
PROVIDERS: PCP Family Medicine; Referring Provider Otolaryngology Otolaryngology/Facial Plastic Surgery; Visit Provider Otolaryngology Otolaryngology/Facial Plastic Surgery
DX: D11.0 Benign neoplasm of parotid gland (principal)
CPT/HCPCS: 10021; 88161; 88305

== ENCOUNTER 2024-11-16 19:36 | Emergency (ER) | payer MEDICARE, OTHER, SELFPAY ==
[2024-11-16 19:37] VITALS: BP 178/84; PULSE 65; RESP 18; TEMP 36.2; O2SAT 97; BMI 28.1
--- NOTE | 2024-11-16 20:13 | RAD_ITS ---
PROCEDURE: HIP, UNI W/ PELVIS 2-3 VIEWS 11/16/2024 REASON FOR EXAM: PAIN, RECENT REPLACEMENT TECHNIQUE: 3 view of the left hip FINDINGS: Bones: No acute fracture Joints: Total hip replacement in satisfactory alignment. Soft tissues: Soft tissues are unremarkable. Other: RAD/HIP, UNI W/ Pelvis 2-3 Views IMPRESSION: TOTAL HIP REPLACEMENT Reading Location: [id number]
--- NOTE | 2024-11-16 20:49 | EX.ED.DYSGE1 ---
HPI History of Present Illness Chief Complaint: Lower Extremity Injury Narrative Narrative: Chief complaint and HPI: Left hip pain. 79-year-old male with recent left total hip replacement presents for evaluation of left hip pain. Patient states on he had a total left hip replacement by [facility] due to arthritis. He states he has been doing well since surgery and started physical therapy today. He states shortly after physical therapy he went to get up from the couch when he felt pain in his left hip. He states that it felt different and as if it was locking up. He states that he was able to ambulate but that it was painful. Pain has significantly improved since arriving here in the emergency department and is minimal. He denies any fever, chills, numbness, tingling. Review of systems: See HPI Medications: As listed on the chart Allergies: As listed on the chart PFSH: Per chart Vital signs: As listed on the chart. Reviewed. Physical exam: Gen: A&O x3, NAD Head: Normocephalic, atraumatic Eyes: No sclera icterus, conjunctiva clear ENT: Moist mucous membranes Neck: Trachea midline, No JVD CV: RRR, no murmurs, no peripheral edema Resp: Lungs CTA BL, no w/r/c GI: Abd soft, non-distended, non-tender, no r/r/g Musc: Full ROM of the bilateral lower extremities, no deformity, mild swelling in the left hip compared to the right - patient just did had surgery, incision healing well without signs of infection, compartments soft, no knee or calf tenderness, femoral/DP/PT pulses +2 bilaterally, compartments soft, good capillary refill Skin: Warm, dry Neuro: Alert, oriented, grossly intact, sensation intact Psych: Cooperative, appropriate mood and affect [facility] Medical History (Updated 11/16/24 @ 21:[address] Armin Harding, DO) BPH (benign prostatic hyperplasia) HTN (hypertension) Warthin tumor Home Medications ?Medication ?Instructions ?Recorded ?Last Taken ?Type Plexus Megax 1 tab PO DAILY supplement 04/19/19 04/17/19 History finasteride 5 mg tablet 5 mg PO DAILY 04/19/19 04/17/19 History lisinopril 5 mg tablet 5 mg PO DAILY 09/24/19 09/22/19 History acetaminophen 650 mg 650 mg PO Q8H PRN pain 11/16/24 Unknown History tablet,extended release (8 Hour Pain Reliever) aspirin 81 mg tablet,delayed 81 mg PO DAILY 11/16/24 Unknown History release (Adult Aspirin Regimen) celecoxib 100 mg capsule 100 mg PO BID 11/16/24 Unknown History latanoprost 0.005 % eye drops 1 drp ophthalmic (eye) QHS 11/16/24 Unknown History Allergy/AdvReac Type Severity Reaction Status Date / Time cephalexin monohydrate (From AdvReac Nausea Verified 11/16/24 19:45 Keflex) Surgical History (Updated 11/16/24 @ 19:44 by Shonda Fry) S/P TURP History of hip replacement Social History Smoking Status: Never smoker EXAM Physical Exam Const Vital Signs: 11/16/24 19:37 11/16/24 21:00 11/16/24 21:08 Temperature 97.1 F L 98 F Temperature Source Oral Pulse Rate 65 67 70 Respiratory Rate 18 12 16 Blood Pressure 178/84 H 142/78 H 156/86 H Blood Pressure Mean 115 99 109 Pulse Ox 97 99 97 Oxygen Delivery Method Room Air MDM MDM MDM Narrative Medical decision making narrative: 79-year-old male with recent left total hip replacement presents for evaluation of left hip pain. Patient states on he had a total left hip replacement by [facility] due to arthritis. Patient started physical therapy today. Developed pain in the left hip after getting up from the couch. Pain was severe but now minimal. Able to ambulate. See physical exam findings differential diagnosis includes but is not limited to myofascial spasm, hip strain, suspect less likely fracture or dislocation. Patient not needing anything for pain at this time. X-ray of the hip obtained. X-ray of the hip was personally reviewed and interpreted by me, ED physician. Patient has a total hip replacement. No fracture or dislocation. Radiology in agreement. On reevaluation, patient's pain is minimal. He was able to ambulate in emergency department without difficulty. Patient is stable to discharge home. Unclear etiology for patient's pain at this time suspect possible myofascial spasm. Follow-up with orthopedic surgeon. Return precautions explained. Impression: 1. Left hip pain, suspect myofascial spasm 2. Status post recent left total hip replacement Radiography Diagnostic Testing: Clinical Impression(s) from Imaging Studies Hip/Pelvis X-Ray 11/16/24 20:13 IMPRESSION: TOTAL HIP REPLACEMENT Reading Location: [facility] Discharge Plan Triage Chief Complaint: Lower Extremity Injury ED Provider: Armin Harding Dx/Rx/DC Orders Clinical Impression: Acute pain of left hip Instructions: ED Hip Strain Prescriptions: No Action lisinopril 5 MG tablet 5 mg PO DAILY Patient Comments: TAKE ONE TABLET BY MOUTH EVERY DAY finasteride 5 MG tablet 5 mg PO DAILY Patient Comments: TAKE ONE TABLET BY MOUTH EVERY DAY Plexus Megax 1 tab PO DAILY latanoprost 0.005 % drops 1 drp ophthalmic (eye) QHS celecoxib 100 mg capsule 100 mg PO BID aspirin [Adult Aspirin Regimen] 81 mg tablet,delayed release (DR/EC) 81 mg PO DAILY acetaminophen [8 Hour Pain Reliever] 650 mg tablet extended release 650 mg PO Q8H PRN (Reason: pain) Primary Care Provider: Venkata Dhillon Referrals: Venkata Dhillon MD [Primary Care Provider] - 3-5 Days Activity Restrictions/Additional Instructions: Follow-up with your orthopedic physician as well as PCP. Return back to the ED if symptoms change or worsen. Print Language: Yoruba Disposition Disposition: Home, Self Care Discharge Date/Time: 11/16/24 21:20
[2024-11-16 21:00] VITALS: BP 142/78; PULSE 67; RESP 12; O2SAT 99
[2024-11-16 21:08] VITALS: BP 156/86; PULSE 70; RESP 16; TEMP 36.6; O2SAT 97
== END 2024-11-16 21:20 | disposition home or self-care (01) ==
PROVIDERS: Emergency Provider Surgery; PCP Family Medicine; Visit Provider Surgery
DX: M25.552 Pain in left hip (principal); Z96.642 Presence of left artificial hip joint; Z79.82 Long term (current) use of aspirin; Z79.899 Other long term (current) drug therapy
CPT/HCPCS: 73502; 99284

== ENCOUNTER 2024-11-20 11:49 | Emergency (ER) | payer MEDICARE, OTHER, SELFPAY ==
[2024-11-20 11:50] VITALS: BP 170/76; PULSE 55; RESP 17; TEMP 36.1; O2SAT 97; BMI 28.3
--- NOTE | 2024-11-20 12:13 | EKG12_ITS ---
Test Reason : SYNCOPE Blood Pressure : */* mmHG Vent. Rate : 53 BPM Atrial Rate : 53 BPM P-R Int : 186 ms QRS Dur : 100 ms QT Int : 468 ms P-R-T Axes : 60 29 48 degrees QTcB Int : 439 ms Sinus bradycardia Otherwise normal ECG Confirmed by LEDA TORRES, DIDIER ([id number]), editorial writer AMY CABRERA ([id number]) on 11/23/2024 11:54:00 AM Referred By: ANNE MARIE/SIMA Confirmed By: DIDIER TOMPKINS MD
[2024-11-20 12:24] LABS: Absolute Neutrophil Count 4.9 X10^3/uL (2.0-7.7); Basophil# 0.05 X10^3/uL; Basophil% 0.7 % (0-1); Eosinophil# 0.38 X10^3/uL; Eosinophils% 5.2 % (0-5); Hematocrit 38.2 % (40-54); Hemoglobin 13.4 g/dL (13.0-16.5); Lymphocyte % 17.8 % (19-41); Mean Corp Hgb Conc 35.1 g/dL (32-36); Mean Corpuscular Hgb 34.1 pg (27.0-32.0); Mean Corpuscular Volume 97.2 fL (80-94); Mean Platelet Vol. 8.7 fl (6.2-12.0); Monocyte# 0.68 X10^3/uL; Monocyte% 9.3 % (0-10); NRBC Flagged by Analyzer 0 % (0-5); Neutrophil # 4.87 X10^3/uL (2.7-7.7); Neutrophil % 66.7 % (47-70); Platelet Count 381 K/mm3 (150-450); RBC Distribution Width CV 13.1 % (11.6-14.6); RBC Distribution Width SD 47.3 fl (35.1-43.9); Red Blood Count 3.93 M/mm3 (4.6-6.2); White Blood Count 7.3 K/mm3 (4.4-11.0)
[2024-11-20 12:36] LABS: D-Dimer Quantitative (DVT/PE) 1.95 FEU/ug/m (0.27-0.49)
--- NOTE | 2024-11-20 12:44 | CT_ITS ---
PROCEDURE: CTA CHEST W/WO CONTRAST 11/20/2024 REASON FOR EXAM: SYNCOPE, ELEVATED DIMER TECHNIQUE: CTA axial imaging of the chest with intravenous contrast. Multiplanar and multisequence images were obtained. 3D, 3D post processing, 3D reconstructions, Maximum intensity projection (MIPs) Volume rendering and Shaded surface rendering was provided. PATIENT PREPARATION: Per protocol One or more dose reduction techniques were used (e.g., Automated exposure control, adjustment of the mA and/or kV according to patient size, use of iterative reconstruction technique). CONTRAST: Omnipaque 350 VOLUME: 100 mL Not Provided Gauge IV COMPARISON: None FINDINGS: Hardware: None Lymph nodes: Few prominent but nonenlarged by size criteria hilar and mediastinal lymph nodes. Heart: Mild cardiomegaly. No significant coronary artery calcifications. Thoracic Aorta: No thoracic aortic aneurysm or dissection. Pulmonary Vessels: No large central pulmonary emboli are identified. Contrast timing is suboptimal for evaluation of more distal branches. Lungs and Airways: Central airways are patent without endobronchial lesions. Patchy opacities in the lung bases, compatible with atelectasis. Mild biapical scarring. No focal consolidation. No pneumothorax. No pleural effusion. No suspicious pulmonary nodules. Upper Abdomen: Visualized portions of the upper abdominal viscera are unremarkable. Bones: Degenerative changes of the thoracic spine. CT/CTA Chest W/WO Contrast IMPRESSION: No evidence of pulmonary embolism or acute findings in the thorax. Reading Location: [facility]
--- NOTE | 2024-11-20 12:46 | EX.ED.DYSGE1 ---
HPI History of Present Illness Chief Complaint: Syncope Informant: patient and family Narrative Narrative: Patient is an 79-year-old male with history of hypertension, BPH, recent left hip surgery (performed at [facility] on 10/26/2024) presenting for an episode of syncope. Patient admits he has a history of vasovagal syncope. He states he woke up in his exercises and felt fine. He went to [facility] but when he started staying in the [facility] he felt his left hip started to tighten up. He continued to have increasing amounts of pain. He did start to feel sweaty and nauseous. He then passed out. He did not fall or hit his head. Bystanders got a wheelchair and wheeled him out. While seated in the wheelchair he came to but then try to get nauseous again and passed out again. He was quite pale at the time per his . Bystanders laid him flat. Bystanders reported that his legs were shaking he did have an episode of urinary incontinence. No generalized seizure activity was reported. Patient came to and now states he is feeling back to normal and has no complaints. He states his hip pain is also resolved. Postoperatively he has been taking 81 mg aspirin twice a day. He denies any swelling of his legs. He states he is actually doing very well as far as for rehab from his hip. He denies any shortness of breath or difficulty breathing. Denies any history of blood clots. No other complaints or concerns reported at this time. [facility] Medical History BPH (benign prostatic hyperplasia) HTN (hypertension) Warthin tumor Home Medications ?Medication ?Instructions ?Recorded ?Last Taken ?Type Plexus Megax 1 tab PO DAILY supplement 04/19/19 04/17/19 History finasteride 5 mg tablet 5 mg PO DAILY 04/19/19 04/17/19 History lisinopril 5 mg tablet 5 mg PO DAILY 04/19/19 04/17/19 History acetaminophen 650 mg 650 mg PO Q8H PRN pain 11/16/24 Unknown History tablet,extended release (8 Hour Pain Reliever) aspirin 81 mg tablet,delayed 81 mg PO DAILY 11/16/24 Unknown History release (Adult Aspirin Regimen) celecoxib 100 mg capsule 100 mg PO BID 11/16/24 Unknown History latanoprost 0.005 % eye drops 1 drp ophthalmic (eye) QHS 11/16/24 Unknown History Allergy/AdvReac Type Severity Reaction Status Date / Time cephalexin monohydrate (From AdvReac Nausea Verified 11/20/24 11:53 Keflex) Surgical History S/P TURP History of hip replacement Social History household members: spouse housing: house Smoking Status: Never smoker ROS ROS ED Constitutional Constitutional ED: Reports sweats and other Details: syncope ; Denies chills or fever(s) Eyes Eyes: Denies change in vision Cardiovascular Cardiovascular: Denies chest pain or palpitations Respiratory/Chest Respiratory/Chest: Denies cough Gastrointestinal Gastrointestinal: Reports nausea and vomiting; Denies abdominal pain Musculoskeletal Musculoskeletal: Reports other Details: post op left hip pain ; Denies arthralgias or myalgias Integumentary Denies rash Neurologic Neurologic: Denies headache(s), paresthesias or weakness Hematologic/Lymphatic Hematologic/Lymphatic: Denies easy bleeding or easy bruising EXAM Physical Exam Const Vital Signs: 11/20/24 11:50 11/20/24 11:54 11/20/24 13:50 Temperature 97 F L Temperature Source Temporal Pulse Rate 55 L 84 Pulse Rate [Lying] Pulse Rate [Sitting (for 1 minute prior to obtaining)] Pulse Rate [Standing (for 1 minute prior to obtaining)] Respiratory Rate 17 18 Respiratory Effort Normal Non-Labored Respiratory Pattern Normal Blood Pressure 170/76 H 133/63 H Blood Pressure [Lying] Blood Pressure [Sitting (for 1 minute prior to obtaining)] Blood Pressure [Standing (for 1 minute prior to obtaining)] Blood Pressure Mean 107 86 Blood Pressure Mean [Lying] Blood Pressure Mean [Sitting (for 1 minute prior to obtaining)] Blood Pressure Mean [Standing (for 1 minute prior to obtaining)] Pulse Ox 97 98 Oxygen Delivery Method Room Air 11/20/24 15:00 11/20/24 15:51 11/20/24 15:52 Temperature 98 F Temperature Source Pulse Rate 75 68 Pulse Rate [Lying] 68 Pulse Rate [Sitting (for 1 minute prior to obtaining)] 70 Pulse Rate [Standing (for 1 minute prior to obtaining)] 70 Respiratory Rate 18 18 Respiratory Effort Respiratory Pattern Blood Pressure 135/78 H 150/69 H Blood Pressure [Lying] 150/70 H Blood Pressure [Sitting (for 1 minute prior to obtaining)] 139/72 H Blood Pressure [Standing (for 1 minute prior to obtaining)] 150/69 H Blood Pressure Mean 97 96 Blood Pressure Mean [Lying] 96 Blood Pressure Mean [Sitting (for 1 minute prior to obtaining)] 94 Blood Pressure Mean [Standing (for 1 minute prior to obtaining)] 96 Pulse Ox 98 99 Oxygen Delivery Method Positive well nourished and well developed General Appearance ED: well developed and NAD HEENT Reports moist mucous membranes Eyes PERRL Neck supple and no JVD Chest Wall inspection of chest normal and palpation of chest normal Resp normal respiratory effort and clear to auscultation bilaterally Cardio regular rate, regular rhythm and no murmurs Cardio Narrative: 2+ radial DP pulses present GI normal to inspection, nondistended, normoactive bowel sounds and non-tender Extremity normal to inspection General Extremety ED: Negative for edema or tenderness General Extremity: Negative for edema Neuro oriented x3 and no sensory deficits noted Sensorium / Orientation: alert Motor Exam: strength 5/5 throughout; Negative for general weakness Psych mental status grossly normal Skin no rashes or lesions noted MDM MDM MDM Narrative Medical decision making narrative: Patient evaluated for syncopal episode x 2 while at [facility] today. Reports a history of vasovagal syncope. Upon arrival to the ER patient is mildly hypertensive but bradycardic. He is currently asymptomatic denies any complaints. Differential includes vasovagal syncope, cardiac arrhythmia, ACS, PE, dehydration, symptomatic anemia, ROLANDO and electrolyte abnormality. Workup including CBC, BMP, delta high-sensitivity troponin, D-dimer, EKG ordered. Patient does have an elevated D-dimer but the remainder of his workup is normal. Delta high since a troponin normal at 18 and 18. Low suspicion for ACS. EKG does not show any acute ischemic changes. No arrhythmia noted on telemetry. CTA of the chest added on to rule out PE given elevated D-dimer. This is negative for any acute process. Orthostatic vital signs obtained which are largely negative. Patient is asymptomatic. Do not think he requires IV fluids. He has been eating and drinking at home. Will be discharged home with follow-up instructions with his primary care doctor. Encouraged him to be started to feel lightheaded he should lie flat instead of just sitting to help prevent further episodes of syncope. Given return precautions. Patient and family verbalized agreement understand this plan. Patient discharged home in stable condition. Lab Data Attestation: I reviewed the patient's lab results. Labs: Laboratory Results - last 24 hr 11/20/24 11/20/24 11/20/24 11:50 11:58 14:45 WBC 7.3 RBC 3.93 L Hgb 13.4 Hct 38.2 L MCV 97.2 H MCH 34.1 H MCHC 35.1 RDW Std Deviation 47.3 H RDW Coeff of Conrad 13.1 Plt Count 381 MPV 8.7 Immature Gran % (Auto) 0.300 Neut % (Auto) 66.7 Lymph % (Auto) 17.8 L Benton % (Auto) 9.3 Eos % (Auto) 5.2 H Baso % (Auto) 0.7 Absolute Neuts (auto) 4.9 Absolute Lymphs (auto) 1.30 Nucleated RBC % 0 D-Dimer Quant (PE/DVT) 1.95 H* Sodium 135 Potassium 4.2 Chloride 101 Carbon Dioxide 23.6 Anion Gap 10 BUN 18 Creatinine 1.08 Estim Creat Clear Calc 57.75 Est GFR (MDRD) Non-Af 69 BUN/Creatinine Ratio 16.4 Glucose 121 H Calcium 9.5 Troponin T High Sens 18 Troponin T Hi Sens 2 Hr 18 Radiography Diagnostic Testing: Clinical Impression(s) from Imaging Studies Chest CTA 11/20/24 12:44 IMPRESSION: No evidence of pulmonary embolism or acute findings in the thorax. Reading [facility] Rhythm Strip Rhythm Strip: Sinus Rhythm Rate: 53 Ectopy: None EKG Initial EKG: Attestation: I personally reviewed and interpreted this EKG as follows: Interpretation: Sinus Bradycardia Comments: Sinus bradycardia rate of 53 bpm Normal axis Normal intervals Normal ST segments Discharge Plan Triage Chief Complaint: Syncope ED Provider: Izabel Blackman Dx/Rx/DC Orders Clinical Impression: Syncope and collapse Instructions: ED Fainting, Vagal Reaction Prescriptions: No Action lisinopril 5 MG tablet 5 mg PO DAILY Patient Comments: TAKE ONE TABLET BY MOUTH EVERY DAY finasteride 5 MG tablet 5 mg PO DAILY Patient Comments: TAKE ONE TABLET BY MOUTH EVERY DAY Plexus Megax 1 tab PO DAILY latanoprost 0.005 % drops 1 drp ophthalmic (eye) QHS celecoxib 100 mg capsule 100 mg PO BID aspirin [Adult Aspirin Regimen] 81 mg tablet,delayed release (DR/EC) 81 mg PO DAILY acetaminophen [8 Hour Pain Reliever] 650 mg tablet extended release 650 mg PO Q8H PRN (Reason: pain) Primary Care Provider: Venkata Dhillon Referrals: Venkata Dhillon MD [Primary Care Provider] - Activity Restrictions/Additional Instructions: Your workup today was largely normal and reassuring. You do not have findings this with any acute cardiac event, blood clot in the lung (pulmonary emboli), dehydration or electrolyte abnormality. Please follow-up with your primary care doctor. Try not to push yourself too much as you are still less than a month postop from your hip surgery. Make sure you are drinking plenty of fluids. If you do feel like you are going to pass out please lie down flat or sit with elevating your legs. Print Language: Latvian Disposition Disposition: Home, Self Care
[2024-11-20 12:50] LABS: Troponin T High Sensitivity 18 ng/L (<=22)
[2024-11-20 12:50] LABS: Anion Gap 10 (5-15); BUN 18 mg/dL (4-19); BUN/Creat Ratio 16.4 RATIO (10-20); Calcium,Total 9.5 mg/dL (7.6-11.0); Carbon Dioxide 23.6 mmol/L (21.0-32.0); Chloride 101 mmol/L (98-108); Creatinine, Serum 1.08 mg/dL (0.70-1.20); EST Glomerular Filtration Rate 69 (>60); Estimated Creatinine Clearance 57.75 ml/min (50-250); Glucose 121 mg/dL (70-99); Potassium 4.2 mmol/L (3.3-5.1); Sodium Level 135 mmol/L (133-145)
[2024-11-20 13:50] VITALS: BP 133/63; PULSE 84; RESP 18; O2SAT 98
[2024-11-20 15:00] VITALS: BP 135/78; PULSE 75; RESP 18; O2SAT 98
[2024-11-20 15:22] LABS: Troponin T High Sens 2 HR 18 ng/L (<=22)
[2024-11-20 15:51] VITALS: BP 139/72; BP 150/69; BP 150/70; PULSE 68; PULSE 70
[2024-11-20 15:52] VITALS: BP 150/69; PULSE 68; RESP 18; TEMP 36.6; O2SAT 99
== END 2024-11-20 16:08 | disposition home or self-care (01) ==
PROVIDERS: Emergency Provider Emergency Medicine; PCP Family Medicine; Visit Provider Emergency Medicine
DX: R55 Syncope and collapse (principal)
CPT/HCPCS: 71275; 80048; 84484; 85025; 85379; 93005; 99284; Q9967; A4216

== ENCOUNTER 2024-11-30 10:00 | Outpatient (RCR) | payer MEDICARE, OTHER, SELFPAY ==
--- NOTE | 2024-11-14 14:47 | HP.PTEVAL_ITS ---
Patient's Visit Information Visit Information Visit Information: DONALD MEJIA is a 79 year old M referred to Physical Therapy by Walt Villalobos MD with a diagnosis of L NAWAF, DOS: 10/26/24. Date of Evaluation: 11/14/24 Physical Therapist: Chucho Plunkett DPT Visit Plan Frequency: 2x /Week Duration: 6 Weeks Plan: L hip strengthening both CKC and OCK gait progression dynamic balance stair negotiation Subjective Subjective: Pt. is here today for his initial evaluation with diagnosis of L NAWAF, 10/26/24. Pt. arrives with use of FWW with good tolerance. Pt. reports being at home and doing his exercises at home with good tolerance. Pt. reports no major pain currently. PT. has 2-3/10 pain at lateral hip. Pt. is still having some pain with sleeping. He is using his walker throughout the home and outside. He is attending to his precautions well. Pt. is hopeful to reduce symptoms and increase his strength in order to get back to all recreational and household activities. Pain L hip: Pain Intensity (Out of 10): 2 Pain Intensity Range: 0 and 4 Objective Objective: POSTURE: Pt. has fairly normal posture in stance, slight flexed posture. PALPATION: Pt. has mild soreness at L lateral hip, normal healing noted. No signs of infection. NEURO: Normal throughout. ROM: L hip: flexion 100deg, abd 45deg, ext 10deg. ER/IR not tested. Pt. has tightness in HS and hip flexor. MMT: LLE: knee: ext 23.5#, [id number]#, hip: flex 26.9#, abd 24.3# RLE: knee: ext 42.8#, flexion 38.0#; hip: flex 34.6#, abd 38.5# GAIT: pt. ambulates with a SPC well with fairly normal gait pattern, slight incr ease in L hip pain. Balance/Special Test Scores Lower Extremity Functional Score: 30 TUG Test Time Seconds: 11.9 30 Second Chair Rise Test Seconds: 20 Goals Goal 1:: LTG: Pt. to be I with HEP. Goal Time Frame: 4-6 Weeks Goal 2:: LTG: Pt. to have symmetrical strength between BLEs. Goal Time Frame: 4-6 Weeks Goal 3:: STG: pt. sleep throughout night without increase in symptoms. Goal Time Frame: 2-4 Weeks Goal 4:: LTG: Pt. to ambulate without AD with normal gait pattern without increase in L hip pain. Goal Time Frame: 4-6 Weeks Goal 5:: LTG: pt. to complete TUG with time less than 10seconds. Goal Time Frame: 4-6 Weeks Rehabilitation Potential Physical Therapy Diagnosis: Pt. has signs and symptoms consistent with L NAWAF, DOS: 10/26/24. Pt. has some slight hypomobility, weakness and functional weakness. He would benefit from PT to address the above limitations progressing back to all recreational and home activities without limitations. Rehabilitation Potential: Excellent Anticipated Interventions Patient/Client Instruction: Educate patient on: Condition, Plan of Care, Risk Factors and Benefits of Fitness Program For the Purpose of:: To improve decision making, To facilitate caregiver knowledge, To improve self management, To prevent re-injury and To improve ability to perform tasks related to life management Therapeutic Exercise to Include: Strength training, Power training, Balance training, Agility training, Body mechanics, Flexibilty training, Passive ROM and Active ROM For the Purpose of:: To decrease pain and To increase ROM Cryotherapy (ice pack, ice massage): Yes For the Purpose of:: To decrease pain, To decrease swelling/inflammation and To increase ROM Text: Thank you for the opportunity to evaluate your patient. For Medicare and Medicare HMO plans, please review the plan of care and approve it. It will need to be FAXED BACK to us at [phone] for Medicare purposes. For Medicare only, by signing this I certify the plan of care. Please let me know if there are questions or concerns regarding this plan of care. Physician Signature: Date:_
== END 2024-11-30 19:00 | disposition home or self-care (01) ==
LOC: PT 10:00
PROVIDERS: PCP Family Medicine; Referring Provider Orthopaedic Surgery; Visit Provider Orthopaedic Surgery
DX: Z96.642 Presence of left artificial hip joint (principal)
CPT/HCPCS: 97110; 97161